=== PATIENT | male | born 1980 | race Caucasian/White ===

== ENCOUNTER 2025-08-21 14:07 | Inpatient (IN) | payer OTHER ==
[2025-08-21] MEDS ORDERED: Ondansetron PF 4 MG/2 ML Vial ONE (14:49)
[2025-08-21 15:42] LABS: ALT (SGPT) 24 U/L (Less than 45); AST (SGOT) 67 U/L (11-34); Albumin 4.7 g/dL (3.1-4.5); Alkaline Phosphatase 104 U/L (40-110); Anion Gap 28 mmol/L (10-20); BUN (Urea Nitrogen) 45 mg/dL (8.9-20.6); Bilirubin, Total 2.1 mg/dL (0.3-1.2); Calc. Creatinine Clearance 0 mL/min (70-130); Calcium 10.8 mg/dL (7.8-10.44); Carbon Dioxide 32 mmol/L (22-29); Chloride 65 mmol/L (98-107); Globulin 5.1 g/dL (2.4-3.5); Glucose 124 mg/dL (70-105); Lipase 77 U/L (8-78); Potassium 2.5 mmol/L (3.5-5.1); Sodium 122 mmol/L (136-145)
[2025-08-21 16:04] LABS: #Basophils 0.03 10x3/uL (0.0-0.2); #Eosinophils Less than 0.03 10x3/uL (0.0-0.7); #Monocytes 1.12 10x3/uL (0.11-0.59); #Neutrophils 9.76 10x3/uL (1.40-6.50); %Basophils 0.2 % (0.0-1.0); %Eosinophils 0.1 % (0.0-10.0); %Lymphocytes 14.1 % (21.0-51.0); %Monocytes 8.7 % (0.0-10.0); %Neutrophils 76.3 % (42.0-75.0); Hematocrit 52.7 % (42.0-52.0); Hemoglobin 19.5 g/dL (14.0-18.0); Mean Corpuscular Hemoglobin 32.6 pg (27.0-31.0); Mean Corpuscular Volume 88.0 fL (78.0-98.0); Platelet Count 300 10x3/uL (130-400); Red Blood Cell (RBC) Count 5.99 mill/uL (4.70-6.10); White Blood Cell (WBC) Count 12.81 10x3/uL (4.8-10.8)
[2025-08-21 16:50] LABS: Acetaminophen Less than 10 mcg/mL (Less than 10); Salicylate Less than 8.0 mg/dL (Less than 8.0)
[2025-08-21] MEDS ORDERED: HYDROmorphone 0.5 MG/0.5 ML SYRINGE ONE (18:16)
[2025-08-21] MEDS ORDERED: Ondansetron PF 4 MG/2 ML Vial IVP PRN (18:16)
[2025-08-21 19:57] VITALS: BMI 21.1
[2025-08-21 20:18] LABS: Magnesium 2.1 mg/dL (1.6-2.6)
[2025-08-21] MEDS: Ketorolac Tromethamine 30 MG (1 mL) VIAL IVP PRN (20:49)
[2025-08-21] MEDS: Heparin 5,000 UNITS/ML VIAL SC SCH (20:50)
[2025-08-21] MEDS: Potassium Chloride 20 MEQ in Premix 1 BAG IVPB SCH (20:51)
[2025-08-21 23:51] LABS: Anion Gap 21 mmol/L (10-20); BUN (Urea Nitrogen) 45 mg/dL (8.9-20.6); Calc. Creatinine Clearance 27 mL/min (70-130); Calcium 8.7 mg/dL (7.8-10.44); Carbon Dioxide 28 mmol/L (22-29); Chloride 78 mmol/L (98-107); Glucose 103 mg/dL (70-105); Potassium 2.7 mmol/L (3.5-5.1); Sodium 124 mmol/L (136-145)
[2025-08-22] MEDS ORDERED: Electrolyte Replacement Protocol 1 EACH FS SCH (01:45)
[2025-08-22] MEDS: Potassium Chloride 20 MEQ in Premix 1 BAG IVPB SCH ×2 (02:19→15:09)
[2025-08-22 05:04] LABS: Bilirubin, Direct 0.6 mg/dL (0.1-0.3)
[2025-08-22 05:09] LABS: ALT (SGPT) 19 U/L (Less than 45); AST (SGOT) 42 U/L (11-34); Albumin 3.5 g/dL (3.1-4.5); Alkaline Phosphatase 72 U/L (40-110); Anion Gap 18 mmol/L (10-20); BUN (Urea Nitrogen) 48 mg/dL (8.9-20.6); Bilirubin, Total 2.0 mg/dL (0.3-1.2); Calc. Creatinine Clearance 30 mL/min (70-130); Calcium 8.8 mg/dL (7.8-10.44); Carbon Dioxide 31 mmol/L (22-29); Chloride 80 mmol/L (98-107); Globulin 3.4 g/dL (2.4-3.5); Glucose 93 mg/dL (70-105); Potassium 2.8 mmol/L (3.5-5.1); Sodium 126 mmol/L (136-145)
[2025-08-22] MEDS: Acetaminophen 325 MG TAB PO PRN (05:15)
[2025-08-22 05:40] LABS: #Basophils 0.03 10x3/uL (0.0-0.2); #Eosinophils 0.05 10x3/uL (0.0-0.7); #Monocytes 1.17 10x3/uL (0.11-0.59); #Neutrophils 6.34 10x3/uL (1.40-6.50); %Basophils 0.3 % (0.0-1.0); %Eosinophils 0.6 % (0.0-10.0); %Lymphocytes 14.8 % (21.0-51.0); %Monocytes 13.0 % (0.0-10.0); %Neutrophils 70.7 % (42.0-75.0); Hematocrit 43.9 % (42.0-52.0); Hemoglobin 16.1 g/dL (14.0-18.0); Mean Corpuscular Hemoglobin 33.0 pg (27.0-31.0); Mean Corpuscular Volume 90.0 fL (78.0-98.0); Platelet Count 250 10x3/uL (130-400); Red Blood Cell (RBC) Count 4.88 mill/uL (4.70-6.10); White Blood Cell (WBC) Count 8.97 10x3/uL (4.8-10.8)
[2025-08-22 06:49] LABS: Cocaine Metabolite Screen PRELIM POSITIVE (Negative); THC/Cannabinoid Screen PRELIM POSITIVE (Negative); Tricyclic Screen Negative (Negative)
[2025-08-22] MEDS: FLU (Fluarix Triv) 25-26 (6MOS UP)/PF 45 MCG/0.5 ML Syringe IM ONE (08:04)
[2025-08-22] MEDS: Pantoprazole 40 MG VIAL IVP SCH (08:04)
[2025-08-22] MEDS: PNEUMOC 20-VAL CONJ-DIP CRM/PF 0.5 ML SYRINGE IM ONE (08:04)
[2025-08-22] MEDS: Folic Acid 1 MG TAB PO SCH (08:05)
[2025-08-22] MEDS: Multivit, Therapeutic 1 TAB PO SCH (08:05)
[2025-08-22] MEDS: Lidocaine 2% Viscous Solution 20 ML, Aluminum & Magnesium Hydroxide 30 ML, Donnatal Eli... SSW SCH (13:17)
[2025-08-22 13:47] LABS: Anion Gap 14 mmol/L (10-20); BUN (Urea Nitrogen) 45 mg/dL (8.9-20.6); Calc. Creatinine Clearance 47 mL/min (70-130); Calcium 8.7 mg/dL (7.8-10.44); Carbon Dioxide 30 mmol/L (22-29); Chloride 84 mmol/L (98-107); Glucose 100 mg/dL (70-105); Potassium 2.6 mmol/L (3.5-5.1); Sodium 125 mmol/L (136-145)
[2025-08-22] MEDS ORDERED: Calcium Carbonate 500 MG ChewTAB PO PRN (16:17)
[2025-08-22] MEDS: Acetaminophen 325 MG TAB PO SCH (17:11)
[2025-08-22 17:20] LABS: Anion Gap 12 mmol/L (10-20); BUN (Urea Nitrogen) 43 mg/dL (8.9-20.6); Calc. Creatinine Clearance 55 mL/min (70-130); Calcium 8.7 mg/dL (7.8-10.44); Carbon Dioxide 32 mmol/L (22-29); Chloride 85 mmol/L (98-107); Glucose 80 mg/dL (70-105); Potassium 3.0 mmol/L (3.5-5.1); Sodium 126 mmol/L (136-145)
[2025-08-22 21:17] LABS: Anion Gap 14 mmol/L (10-20); BUN (Urea Nitrogen) 39 mg/dL (8.9-20.6); Calc. Creatinine Clearance 61 mL/min (70-130); Calcium 8.6 mg/dL (7.8-10.44); Carbon Dioxide 31 mmol/L (22-29); Chloride 86 mmol/L (98-107); Glucose 80 mg/dL (70-105); Potassium 3.1 mmol/L (3.5-5.1); Sodium 128 mmol/L (136-145)
[2025-08-23 01:32] LABS: Anion Gap 12 mmol/L (10-20); BUN (Urea Nitrogen) 35 mg/dL (8.9-20.6); Calc. Creatinine Clearance 74 mL/min (70-130); Calcium 8.7 mg/dL (7.8-10.44); Carbon Dioxide 32 mmol/L (22-29); Chloride 87 mmol/L (98-107); Glucose 91 mg/dL (70-105); Potassium 3.2 mmol/L (3.5-5.1); Sodium 128 mmol/L (136-145)
[2025-08-23 04:51] LABS: #Basophils Less than 0.03 10x3/uL (0.0-0.2); #Eosinophils Less than 0.03 10x3/uL (0.0-0.7); #Monocytes 0.79 10x3/uL (0.11-0.59); #Neutrophils 3.78 10x3/uL (1.40-6.50); %Basophils 0.3 % (0.0-1.0); %Eosinophils 0.3 % (0.0-10.0); %Lymphocytes 24.3 % (21.0-51.0); %Monocytes 12.9 % (0.0-10.0); %Neutrophils 61.9 % (42.0-75.0); Hematocrit 38.3 % (42.0-52.0); Hemoglobin 14.2 g/dL (14.0-18.0); Mean Corpuscular Hemoglobin 33.6 pg (27.0-31.0); Mean Corpuscular Volume 90.8 fL (78.0-98.0); Platelet Count 214 10x3/uL (130-400); Red Blood Cell (RBC) Count 4.22 mill/uL (4.70-6.10); White Blood Cell (WBC) Count 6.12 10x3/uL (4.8-10.8)
[2025-08-23 05:09] LABS: ALT (SGPT) 18 U/L (Less than 45); AST (SGOT) 31 U/L (11-34); Albumin 3.0 g/dL (3.1-4.5); Alkaline Phosphatase 59 U/L (40-110); Anion Gap 14 mmol/L (10-20); BUN (Urea Nitrogen) 31 mg/dL (8.9-20.6); Bilirubin, Total 1.6 mg/dL (0.3-1.2); CK (CPK) 222 U/L (30-200); Calc. Creatinine Clearance 87 mL/min (70-130); Calcium 8.4 mg/dL (7.8-10.44); Carbon Dioxide 30 mmol/L (22-29); Chloride 90 mmol/L (98-107); Globulin 2.6 g/dL (2.4-3.5); Glucose 89 mg/dL (70-105); Magnesium 2.0 mg/dL (1.6-2.6); Potassium 3.2 mmol/L (3.5-5.1); Sodium 131 mmol/L (136-145)
[2025-08-23] MEDS: PHOS-NAK 1 PKT PACK PO SCH (09:31)
[2025-08-23 11:11] LABS: Anion Gap 13 mmol/L (10-20); BUN (Urea Nitrogen) 28 mg/dL (8.9-20.6); Calc. Creatinine Clearance 90 mL/min (70-130); Calcium 8.7 mg/dL (7.8-10.44); Carbon Dioxide 31 mmol/L (22-29); Chloride 90 mmol/L (98-107); Glucose 106 mg/dL (70-105); Potassium 3.4 mmol/L (3.5-5.1); Sodium 131 mmol/L (136-145)
[2025-08-23] MEDS: Simethicone Chewable 80 MG TAB PO PRN (12:20)
[2025-08-23 15:41] LABS: Anion Gap 13 mmol/L (10-20); BUN (Urea Nitrogen) 25 mg/dL (8.9-20.6); Calc. Creatinine Clearance 94 mL/min (70-130); Calcium 9.1 mg/dL (7.8-10.44); Carbon Dioxide 30 mmol/L (22-29); Chloride 91 mmol/L (98-107); Glucose 85 mg/dL (70-105); Potassium 3.4 mmol/L (3.5-5.1); Sodium 131 mmol/L (136-145)
[2025-08-23 15:44] VITALS: BP 133/87; TEMP 98.4
[2025-08-25] MEDS ORDERED: Thiamine 100 MG TAB PO SCH (09:00)
== END 2025-08-23 16:11 | disposition home or self-care (01) | DRG 683 ==
LOC: ERS 14:07 → OBS 18:00
PROVIDERS: ADMIT Emergency Medicine; ATTEND Emergency Medicine
DX: N17.9 Acute kidney failure, unspecified (principal); E87.1 Hypo-osmolality and hyponatremia; K86.1 Other chronic pancreatitis; E86.0 Dehydration; E87.6 Hypokalemia; R03.0 Elevated blood-pressure reading, without diagnosis of hypertension; E86.1 Hypovolemia; N18.2 Chronic kidney disease, stage 2 (mild); E83.52 Hypercalcemia; Z79.899 Other long term (current) drug therapy
CPT/HCPCS: 36415; 71045; 74176; 76705; 80053; 80306; 80307; 82248; 82550; 83690; 83735; 84100; 84484; 85025; 93005; 96361; 96374; 96375; J1171; J1644; J1885; J2270; J2405; J2470; J3010; J3411; J3480; J7120